=== PATIENT | male | born 1975 | race Caucasian/White ===

== ENCOUNTER → 2021-08-08 09:27 | Outpatient (BNVA) | payer OTHER, SELFPAY | PROVIDERS: Visit Provider Physician Assistant | DX: S63.616A Unspecified sprain of right little finger, initial encounter (principal); S63.501A Unspecified sprain of right wrist, initial encounter; X50.3XXA Overexertion from repetitive movements, initial encounter | CPT/HCPCS: 29125; 99203 ==

== ENCOUNTER → 2021-08-12 07:53 | Outpatient (BNVA) | payer OTHER, SELFPAY | PROVIDERS: Visit Provider Physician Assistant Medical | DX: S63.612A Unspecified sprain of right middle finger, initial encounter (principal); S63.501A Unspecified sprain of right wrist, initial encounter; X58.XXXA Exposure to other specified factors, initial encounter | CPT/HCPCS: 99213 ==